=== PATIENT | female | born 1990 | race Caucasian/White ===

== ENCOUNTER 2017-07-14 14:16 | Emergency (ER) | payer OTHER, MEDICAID ==
[2017-07-14 14:29] VITALS: BP 128/87
--- NOTE | 2017-07-14 14:44 | EDM.PDOC ---
ED HPI GENERAL MEDICAL PROBLEM - General Chief Complaint: Respiratory Problem Stated Complaint: SICK with bronchitis and sinus type problems for over a week Time Seen by Provider: 07/14/17 14:36 Source of Information: Reports: Patient History Limitations: Reports: No Limitations - History of Present Illness INITIAL COMMENTS - FREE TEXT/NARRATIVE: Has been sick for over a week and getting worse Onset: Gradual Onset Date: 07/06/17 Onset Time: 08:00 Duration: Day(s):, Getting Worse Location: Reports: Head, Neck, Chest Quality: Reports: Burning, Dull, Pressure, Same as Previous Episode Severity: Moderate Improves with: Reports: None Worsens with: Reports: Breathing Associated Symptoms: Reports: Cough, Headaches, Shortness of Breath. Denies: Confusion, Chest Pain, cough w sputum, Diaphoresis, Fever/Chills, Loss of Appetite, Nausea/Vomiting, Seizure, Syncope, Weakness Treatments SAFETY SPEC: Reports: Other (see below) Other Treatments SAFETY SPEC: cough syrup Chest Pain Score (Numeric/FACES): 8 - Related Data Allergies Allergy/AdvReac Type Severity Reaction Status Date / Time No Known Allergies Allergy Verified 07/14/17 14:29 Home Meds: Home Meds . [No Known Home Meds] 10/26/13 [History] Past Medical History - Past Health History Medical/Surgical History: Denies Medical/Surgical History Respiratory History: Reports: Bronchitis, Recurrent - Past Surgical History HEENT Surgical History: Reports: Tonsillectomy GI Surgical History: Reports: Cholecystectomy Social & Family History - Tobacco Use Smoking Status *Q: Never Smoker Second Hand Smoke Exposure: No - Recreational Drug Use Recreational Drug Use: No ED ROS GENERAL - Review of Systems Review Of Systems: See Below Constitutional: Denies: Fever, Chills, Malaise, Diaphoresis HEENT: Reports: Nose Pain, Rhinitis, Sinus Problem, Throat Pain Respiratory: Reports: Shortness of Breath, Wheezing, Cough. Denies: Sputum, Hemoptysis Cardiovascular: Reports: No Symptoms Endocrine: Reports: No Symptoms GI/Abdominal: Reports: No Symptoms : Reports: No Symptoms Musculoskeletal: Reports: No Symptoms Skin: Reports: No Symptoms Neurological: Reports: No Symptoms Psychiatric: Reports: No Symptoms Hematologic/Lymphatic: Reports: No Symptoms Immunologic: Reports: No Symptoms ED EXAM, GENERAL - Physical Exam Exam: See Below Exam Limited By: No Limitations General Appearance: Alert, WD/WN, No Apparent Distress Eye Exam: Bilateral Eye: EOMI, PERRL Ears: Normal External Exam, Normal Canal, Hearing Grossly Normal, Normal TMs Ear Exam: Bilateral Ear: TM Dull Nose: Nasal Swelling, Clear Rhinorrhea, Other (nasal mucosa red boggy and swollen bilat, tender with palpation over frontal and maxillary sinuses) Throat/Mouth: Normal Inspection, Normal Lips, Normal Teeth, Normal Gums, Normal Oropharynx (posterior oropharynx slightly reddened), Normal Voice, No Airway Compromise Head: Atraumatic, Normocephalic Neck: Normal Inspection, Supple, Non-Tender, Full Range of Motion Respiratory/Chest: No Respiratory Distress, No Accessory Muscle Use, Chest Non- Tender, Decreased Breath Sounds, Wheezing (end expiratory wheeze bilat), Prolonged Expiration. No: Crackles, Rales, Rhonchi, Accessory Muscle Use Cardiovascular: Normal Peripheral Pulses, Regular Rate, Rhythm, No Edema, No Gallop, No JVD, No Murmur, No Rub Peripheral Pulses: 3+: Radial (L), Radial (R) GI/Abdominal: Normal Bowel Sounds, Soft, Non-Tender, No Organomegaly, No Distention, No Abnormal Bruit, No Mass (Female) Exam: Deferred Rectal (Female) Exam: Deferred Back Exam: Normal Inspection, Full Range of Motion, NT Extremities: Normal Inspection, Normal Range of Motion, Non-Tender, Normal Capillary Refill, No Pedal Edema Neurological: Alert, Oriented, CN II-XII Intact, Normal Cognition, Normal Gait, Normal Reflexes, No Motor/Sensory Deficits Psychiatric: Normal Affect, Normal Mood Skin Exam: Warm, Dry, Intact, Normal Color, No Rash Lymphatic: No Adenopathy Course - Vital Signs Last Recorded V/S: Last Vital Signs Temp 36.8 C 07/14/17 14:23 Pulse 84 07/14/17 14:23 Resp 16 07/14/17 14:23 BP 128/87 07/14/17 14:23 Pulse Ox 96 07/14/17 14:23 - Orders/Labs/Meds Meds: Medications Discontinued Medications Generic Name Dose Route Start Last Admin Trade Name Freq PRN Reason Stop Dose Admin Albuterol 2 gm 07/14/17 14:49 07/14/17 14:58 Ventolin Hfa INH 1 pack Q4H PRN Administration Shortness of Breath Azithromycin 1 packet 07/14/17 14:50 07/14/17 14:58 Take Home: Azithromycin 250 Mg, 2 Tab Pack PO 07/14/17 14:51 1 packet ONETIME ONE Administration - Re-Assessments/Exams Free Text/Narrative Re-Assessment/Exam: 07/14/17 17:15 Patient evaluated in ER and diagnosed with acute sinusitis and bronchitis lasting more than one week and actually getting worse. See discharge notes for recommendations Patient to recheck with regular provider if symptoms worsen or fail to improve Departure - Departure Time of Disposition: 14:44 Disposition: Home, Self-Care 01 Condition: Good Clinical Impression: Acute bronchitis Qualifiers: Bronchitis organism: unspecified organism Qualified Code(s): J20.9 - Acute bronchitis, unspecified Acute sinusitis Qualifiers: Sinusitis location: pansinusitis Recurrence: not specified as recurrent Qualified Code(s): J01.40 - Acute pansinusitis, unspecified - Discharge Information Instructions: Acute Bronchitis, [id number], Azithromycin tablets Referrals: Suze Daniels [employer] [Primary Care Provider] - Forms: ED Department Discharge Additional Instructions: azithromycin 500 mg today and fill prescription for the rest tomorrow. yogurt once daily to help prevent antibiotic related diarrhea drink lots of liquids albuterol inhaler 2 puffs every four hours as needed for cough, wheeze or shortness of breath see your regular provider if not better within one week.
[2017-07-14] MEDS ORDERED: Albuterol 8 GM Inhaler INH PRN (14:49)
[2017-07-14] MEDS ORDERED: Take Home: Azithromycin 250 MG, 2 Tab Pack PO ONE (14:50)
== END 2017-07-14 15:00 | disposition home or self-care (01) ==
LOC: VM.ED 14:16
DX: J20.9 Acute bronchitis, unspecified (principal); J01.40 Acute pansinusitis, unspecified; Z90.49 Acquired absence of other specified parts of digestive tract; Z90.89 Acquired absence of other organs
CPT/HCPCS: 99283; A9270

== ENCOUNTER 2019-01-23 18:47 | Emergency (ER) | payer MEDICAID, OTHER ==
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
[2019-01-23 22:21] VITALS: BP 141/84
== END 2019-01-23 19:38 | disposition home or self-care (01) ==
LOC: VM.ED 18:47
DX: B00.9 Herpesviral infection, unspecified (principal); K14.8 Other diseases of tongue
CPT/HCPCS: 87081; 87880-QW; 99283